=== PATIENT | male | born 1985 | race Asian ===

== ENCOUNTER 2023-01-01 19:04 | Emergency (ER) | payer BC ==
[2023-01-01 19:10] VITALS: BP 125/84; PULSE 81; RESP 17; TEMP 98.1; BMI 24.3
[2023-01-01] MEDS ORDERED: ALBUTEROL SO4 HFA INHALER IH ONE ×2 (19:20→19:21)
[2023-01-01] MEDS ORDERED: DEXAMETHASONE 4 MG TABLET (FP) PO ONE (19:22)
[2023-01-01] MEDS ORDERED: DEXAMETHASONE 4 MG TABLET (FP) ONE (19:29)
== END 2023-01-01 19:35 | disposition home or self-care (01) ==
LOC: JER 19:04 → JERFT 19:04
PROC: 3E0F7GC Introduction of Other Therapeutic Substance into Respiratory Tract, Via Natural or Artificial Opening (ICD-10-PCS; principal; 2023-01-01)
DX: R06.02 Shortness of breath (principal); J40 Bronchitis, not specified as acute or chronic; J45.909 Unspecified asthma, uncomplicated; R05.9 Cough, unspecified
CPT/HCPCS: 71046-TC-FY; 99283-25